=== PATIENT | female | born 1995 | race Caucasian/White ===

== ENCOUNTER 2016-08-02 19:16 | Emergency (ER) | payer MEDICAID ==
[2016-08-02 21:22] LABS: HCG URINE NEGATIVE (NEGATIVE)
[2016-08-02 21:28] LABS: UDS - AMPHET NEGATIVE QUAL (NEGATIVE); UDS - BARB NEGATIVE QUAL (NEGATIVE); UDS - BENZO POSITIVE QUAL (NEGATIVE); UDS - COCAINE NEGATIVE QUAL (NEGATIVE); UDS - METH NEGATIVE QUAL (NEGATIVE); UDS - OPIATE NEGATIVE QUAL (NEGATIVE); UDS - PCP NEGATIVE QUAL (NEGATIVE); UDS - THC NEGATIVE QUAL (NEGATIVE)
[2016-08-02 21:50] LABS: APPEARANCE CLOUDY (CLEAR); COLOR YELLOW (YELLOW); LEUKOCYTE ESTERASE 1+ (NEGATIVE)
[2016-08-02 21:51] LABS: BACTERIA MANY /hpf (NONE SEEN); BILIRUBIN NEGATIVE (NEGATIVE); EPITHELIAL CELLS NSEEN /hpf (0-5); GLUCOSE NEGATIVE (NEGATIVE); KETONE SMALL mg/dL (NEGATIVE); NITRITE POSITIVE (NEGATIVE); PROTEIN NEGATIVE (NEGATIVE); RED CELLS - URINE 0-5 /hpf (0-5); UROBILINOGEN NORMAL (NORMAL)
[2016-08-02 21:52] LABS: MUCUS <1+ /lpf (NONE SEEN)
== END 2016-08-02 22:50 | disposition home or self-care (01) ==
LOC: D.ER 19:16
PROVIDERS: Physician Assistant
DX: T14.8 Other injury of unspecified body region (principal); R30.0 Dysuria; Z72.51 High risk heterosexual behavior; N39.0 Urinary tract infection, site not specified; F17.200 Nicotine dependence, unspecified, uncomplicated; F41.9 Anxiety disorder, unspecified; F31.9 Bipolar disorder, unspecified

== ENCOUNTER 2017-06-26 19:03 | Emergency (ER) | payer MEDICAID ==
[2017-06-26 20:08] LABS: BASOPHILS 0.1 % (0-2); EOSINOPHILS 1.5 % (0-7); HEMATOCRIT 38.7 % (36.0-48.0); HEMOGLOBIN 13.4 g/dL (12-16); IMMATURE GRANULOCYTES 0.2 % (0-5); MCHC 34.6 g/dL (31.0-37.0); MCV 89.6 fL (80.0-100.0); MEAN PLATELET VOLUME 8.9 fL (7.4-10.4); MONOCYTES 6.8 % (2-11); NEUTROPHILS 62.4 % (40-80); PLATELET COUNT 288 10x3/uL (130-400); RBC 4.32 10x6/uL (4.00-5.40); RDW 11.7 % (11.5-14.5); WBC 8.6 10x3/uL (4.8-10.8)
[2017-06-26 20:25] LABS: APPEARANCE CLEAR (CLEAR); BILIRUBIN NEGATIVE (NEGATIVE); COLOR YELLOW (YELLOW); GLUCOSE NEGATIVE (NEGATIVE); KETONE NEGATIVE (NEGATIVE); NITRITE NEGATIVE (NEGATIVE); PROTEIN NEGATIVE (NEGATIVE); UROBILINOGEN NORMAL (NORMAL)
[2017-06-26 20:28] LABS: HCG SERUM POSITIVE (NEGATIVE)
[2017-06-26 20:33] LABS: ALBUMIN 3.7 g/dL (3.4-5.0); ALKALINE PHOSPHATASE 62 U/L (46-116); ALT (SGPT) 18 U/L (10-68); BILIRUBIN - TOTAL 0.18 mg/dL (0.2-1.3); CALC OSMOLALITY 270 mosm/kg (275-300); CALCIUM 8.9 mg/dL (8.5-10.1); CHLORIDE - SERUM 102 mmol/L (98-107); CREATININE - SERUM 0.6 mg/dL (0.6-1.3); GLUCOSE 106 mg/dL (74-106); POTASSIUM - SERUM 3.3 mmol/L (3.5-5.1); PROTEIN - SERUM 7.2 g/dL (6.4-8.2); SODIUM 136 mmol/L (136-145); UREA NITROGEN 11 mg/dL (7-18); eGFR NON AFRICAN AMERICAN > 90 mL/min (90-120)
[2017-06-26 21:29] LABS: HCG - QUANTITATIVE (MATERNAL) 92871 mIU/mL
== END 2017-06-26 21:24 | disposition home or self-care (01) ==
LOC: D.ER 19:03
PROVIDERS: Family Medicine
DX: O26.891 Other specified pregnancy related conditions, first trimester (principal); Z3A.01 Less than 8 weeks gestation of pregnancy

== ENCOUNTER → 2017-10-25 11:47 | Outpatient (CLI) | payer MEDICAID ==
[2017-10-25 12:58] LABS: UDS - AMPHET NEGATIVE QUAL (NEGATIVE); UDS - BARB NEGATIVE QUAL (NEGATIVE); UDS - BENZO NEGATIVE QUAL (NEGATIVE); UDS - COCAINE NEGATIVE QUAL (NEGATIVE); UDS - OPIATE NEGATIVE QUAL (NEGATIVE); UDS - PCP NEGATIVE QUAL (NEGATIVE); UDS - THC NEGATIVE QUAL (NEGATIVE)
[2017-10-25 13:14] LABS: APPEARANCE CLOUDY (CLEAR); BACTERIA MANY /hpf (NONE SEEN); BILIRUBIN NEGATIVE (NEGATIVE); COLOR YELLOW (YELLOW); EPITHELIAL CELLS 0-5 /hpf (0-5); GLUCOSE NEGATIVE (NEGATIVE); KETONE NEGATIVE (NEGATIVE); MUCUS <1+ /lpf (NONE SEEN); NITRITE POSITIVE (NEGATIVE); PROTEIN NEGATIVE (NEGATIVE); RED CELLS - URINE 0-5 /hpf (0-5); SPECIFIC GRAVITY 1.005 (1.005-1.020); UROBILINOGEN NORMAL (NORMAL)
== END | disposition home or self-care (01) ==
LOC: D.LDO 11:47
PROVIDERS: Obstetrics & Gynecology
DX: O26.892 Other specified pregnancy related conditions, second trimester (principal); Z3A.25 25 weeks gestation of pregnancy

== ENCOUNTER → 2017-12-03 15:55 | Outpatient (CLI) | payer MEDICAID | END | disposition home or self-care (01) | LOC: D.LDO 15:55 | DX: O36.8130 Decreased fetal movements, third trimester, not applicable or unspecified (principal); Z3A.31 31 weeks gestation of pregnancy ==

== ENCOUNTER → 2018-01-27 21:13 | Outpatient (CLI) | payer MEDICAID ==
[~2018-01-27 21:13] MED LIST: PRENATAL COMPLE1 TAB PO
[2018-02-05 05:55] VITALS: BMI 34.4
== END | disposition home or self-care (01) ==
LOC: D.LDO 21:13
DX: O26.893 Other specified pregnancy related conditions, third trimester (principal); Z3A.38 38 weeks gestation of pregnancy

== ENCOUNTER → 2018-01-31 15:20 | Outpatient (CLI) | payer MEDICAID ==
[2018-02-05 05:55] VITALS: BMI 34.4
== END | disposition home or self-care (01) ==
LOC: D.LDO 15:20
DX: O26.893 Other specified pregnancy related conditions, third trimester (principal); Z3A.39 39 weeks gestation of pregnancy

== ENCOUNTER → 2018-02-03 19:17 | Outpatient (CLI) | payer MEDICAID ==
[2018-02-05 05:55] VITALS: BMI 34.4
== END | disposition home or self-care (01) ==
LOC: D.LDO 19:17
DX: O48.0 Post-term pregnancy (principal); Z3A.40 40 weeks gestation of pregnancy

== ENCOUNTER 2018-02-05 05:11 | Inpatient (IN) | payer MEDICAID ==
[~2018-02-05] VITALS: Ht 161.3 cm; Wt 89.4 kg
[2018-02-05] VITALS (8 sets, daily range): BP systolic 121–136; BP diastolic 73–88; Ht 161.3 cm; Wt 89.4 kg
--- NOTE | ~2018-02-05 | OP ---
PATIENT NAME: MIRANDA MEDICAL RECORD: [id number] :95 LOCATION:[id number] ADMISSION DATE:02/05/18 SURGEON: LEOPOLDO QUILES MD DATE OF OPERATION: 02/05/2018 PREOPERATIVE DIAGNOSES: Arrest of dilatation and descent during induction of labor. POSTOPERATIVE DIAGNOSIS: Arrest of dilatation and descent during induction of labor. PROCEDURE: A primary low transverse section with vacuum assist. SURGEON: Leopoldo Quiles MD ANESTHESIA: Regional via epidural. INTRAVENOUS FLUIDS: Per anesthesia record. ESTIMATED BLOOD LOSS: 1000 cc. SPECIMENS: Placenta and cord for gases. FINDINGS: Viable infant with an unengaged vertex, Apgars 9 and 9. The placenta was delivered manually intact, 3-vessel cord noted, grossly normal appearing tubes and ovaries bilaterally. COMPLICATIONS: None apparent. SPECIMENS: Placenta and cord for gases. ESTIMATED BLOOD LOSS: 1000 cc. COMPLICATIONS: None apparent. PROCEDURE IN DETAIL: The patient was taken to the operating room where regional anesthesia was achieved without difficulty. The patient was then prepped and draped in normal sterile fashion in the dorsal supine position. SCDs were on and functioning normally. Walsh catheter had been placed and was draining freely. Following prep and drape and testing of the regional level, a Pfannenstiel skin incision was made, extended downward to the underlying subcutaneous fat to the level of the fascia. The fascia was then excised in the midline and extended bilaterally using the Rdz scissors. The superior and inferior aspects of the fascial incision were then grasped with Steph clamps times 2, tented upward, and sharply dissected from the underlying rectus muscle using the Bovie cautery and Rdz scissors. The rectus muscles were then bluntly in the midline and the peritoneum entered at the superior aspect of the incision sharply using the Metzenbaum scissors. The peritoneum was then dissected further laterally and downward using the Metzenbaum scissors under direct visualization of the bladder. A bladder blade was then placed into the pelvis and a bladder flap was created by excising the anterior leaf of the broad ligament across the lower uterine segment. A low transverse incision was made and extended using the Pelosi method. The head was found to be unengaged and extended. A Kiwi vacuum was placed on the occiput performing correction to the flexed position at which time the vertex was delivered OPERATIVE REPORT [id number] atraumatically. No traction was placed on the neck. No pop offs and immediately upon delivery of the vertex, vacuum was removed with no evidence of trauma. The body was delivered atraumatically. was bulb suctioned upon delivery. Cord was clamped times 2, cut, and the infant was handed to the awaiting nursery team. Cord was then obtained for gases. The placenta was then delivered manually intact, 3-vessel cord was noted. Uterus was exteriorized, cleared of all clots and debris and the uterine incision was repaired with 0 Vicryl in a running locked fashion times 2 with good hemostasis noted. Posterior cul-de-sac was then thoroughly irrigated and the uterus was replaced into the pelvis. Anterior cul-de-sac was then thoroughly irrigated and good hemostasis was noted from the uterine incision. Counts were then found to be correct times 2 for sponges, needles, and instruments. The fascia was repaired with 0 loop PDS times 1. The subcutaneous fat was approximated using 2-0 plain gut. The skin was repaired with lupe. The patient tolerated the procedure well, was transferred to postanesthesia recovery stable without incident. TRANSINT:[id number] Voice Confirmation ID: [id number] DOCUMENT ID: [id number] LEOPOLDO QUILES MD at 1754 CC: [id number] DICTATION DATE: 02/23/18 0754 MERCHANDISING PROFESSOR: 02/23/18 0850 DIS IN 02/07/18 [facility] [address] [place] [address]
--- NOTE | ~2018-02-05 | DS ---
PATIENT:RUTH :95 MEDICAL RECORD: [id number] DISCHARGE SUMMARY ADMISSION DATE: 02/05/18 DISCHARGE DATE: 02/07/18 HISTORY OF PRESENT ILLNESS: The patient is a 22-year-old at 40 weeks and 3 days, admitted for induction of labor. The patient noted to be O positive, group B strep positive, and rubella immune. PAST MEDICAL HISTORY: Significant for Trichomonas and positive for group B strep as noted. The patient also reported a history of anxiety. The patient reported a history of surgery with a pin on the little finger in 2002. MEDICATIONS: Included vitamins. FAMILY HISTORY: THE PATIENT REPORTED AN ALLERGY OR REACTION TO CODEINE. FAMILY HISTORY: The patient reported a family history significant for a parent with diabetes and sibling with hypertension. SOCIAL HISTORY: The patient reported being a former tobacco user and current user of marijuana. PHYSICAL EXAMINATION: VITAL SIGNS: On initial assessment, vital signs were found to be stable. The patient was afebrile and normotensive. LUNGS: Clear to auscultation. CARDIOVASCULAR: Regular rate and rhythm. PELVIC: Uterus was appropriately sized and nontender. EXTREMITIES: Lower extremities are free of Homans sign, erythema, or swelling. At admission, wellbeing was reassuring with a category 1 tracing in the 130 heart rate with moderate variability. Admit hemoglobin was found to be 12.3 with a platelet count of 203. ASSESSMENT AND PLAN: At that time; 1. Term intrauterine at 40 weeks and 2 days. 2. Admitted for induction of labor. 3. Positive group B strep. 4. History of Trichomonas. 5. High station. Plan to proceed with induction of labor. The patient was notified of the high station, which increases the risk of section. The patient voiced understanding and consent, and Pitocin and antibiotics were begun. The patient was started on Pitocin and antibiotics. The patient had a spontaneous rupture of membranes with clear fluid. After Pitocin for 9 hours, no cervical change or significant descent of the head was noted, the patient was given options of continuing with labor versus . The patient opted to proceed with . Risks and benefits were explained. The patient voiced understanding and consent. Operative report is as on the chart. The patient did well overnight on day #0, on Dilaudid DELINQUENT TAX COLLECTION ASSISTANT, IV Toradol, IV fluids, tolerating a clear liquid diet. SCDs were on and functioning normally. Walsh catheter had remained and urine output was found to be adequate. On the morning of postop day #1, the patient continued to do well. Vital signs are stable. The patient was afebrile. Hemoglobin was stable. Uterus is infraumbilical and DISCHARGE SUMMARY REPORT [id number] nontender. Incision was clean, dry and intact. The patient was advanced on postop day #1 to general diet, p.o. pain meds. Walsh catheter was discontinued and ambulation began. The patient continued to do well overnight on postop day #1. On postop day #2, the patient continued to improve. Vital signs were stable. Hemoglobin was stable. Uterus is infraumbilical. Incision was clean, dry and intact. The patient reported minimal lochia and minimal need for pain medication. The patient was discharged home on postop day #2 with instructions to follow up the next week for staple removal. TRANSINT:[id number] Voice Confirmation ID: [id number] DOCUMENT ID: [id number] ARELY VAUGHN MD at 1754 CC: [id number] DICTATION DATE: 02/23/18 0758 TERRITORY MANAGER [employer]AL SALES: 02/24/18 0552 DIS IN 02/07/18 [facility] [id number] [place] [address]
[2018-02-05] MEDS ORDERED: PRENATAL COMPLE1 TAB PO (05:52)
[2018-02-05 06:44] LABS: HEMATOCRIT 35.9 % (36.0-48.0); HEMOGLOBIN 12.3 g/dL (12-16); MCH 31.4 pg (26.0-34.0); MCHC 34.3 g/dL (31.0-37.0); MCV 91.6 fL (80.0-100.0); MEAN PLATELET VOLUME 9.3 fL (7.4-10.4); RBC 3.92 10x6/uL (4.00-5.40); WBC 12.3 10x3/uL (4.8-10.8)
[2018-02-05 07:41] LABS: APPEARANCE CLEAR (CLEAR); BACTERIA MODERATE /hpf (NONE SEEN); BILIRUBIN NEGATIVE (NEGATIVE); COLOR YELLOW (YELLOW); EPITHELIAL CELLS 0-5 /hpf (0-5); GLUCOSE NEGATIVE (NEGATIVE); KETONE NEGATIVE (NEGATIVE); MUCUS <1+ /lpf (NONE SEEN); NITRITE NEGATIVE (NEGATIVE); PROTEIN TRACE mg/dL (NEGATIVE); SPECIFIC GRAVITY 1.005 (1.005-1.020); UROBILINOGEN NORMAL (NORMAL); WHITE CELLS - URINE 0-5 /hpf (0-5)
[2018-02-06 00:15] VITALS: BP 128/70
[2018-02-06 04:50] VITALS: BP 125/75
[2018-02-06 06:27] LABS: BASOPHILS 0.1 % (0-2); EOSINOPHILS 0.1 % (0-7); HEMATOCRIT 37.1 % (36.0-48.0); HEMOGLOBIN 12.8 g/dL (12-16); IMMATURE GRANULOCYTES 0.9 % (0-5); LYMPHOCYTES 13.5 % (15-50); MCH 31.4 pg (26.0-34.0); MCHC 34.5 g/dL (31.0-37.0); MCV 91.2 fL (80.0-100.0); MEAN PLATELET VOLUME 9.3 fL (7.4-10.4); MONOCYTES 7.6 % (2-11); NEUTROPHILS 77.8 % (40-80); PLATELET COUNT 196 10x3/uL (130-400); RBC 4.07 10x6/uL (4.00-5.40); RDW 12.9 % (11.5-14.5); WBC 14.5 10x3/uL (4.8-10.8)
[2018-02-06 07:25] VITALS: BP 139/85
[2018-02-06 07:33] LABS: RAPID PLASMA REAGIN Non Reactive (Non Reactive)
[2018-02-06 19:58] VITALS: BP 134/87
[2018-02-07 00:23] VITALS: BP 117/74
[2018-02-07 07:23] VITALS: BP 128/74
== END 2018-02-07 13:24 | disposition home or self-care (01) | DRG 765 ==
LOC: D.LD 05:11
PROVIDERS: Obstetrics & Gynecology
PROC: 10D00Z1 Extraction of Products of Conception, Low, Open Approach (ICD-10-PCS; 2018-02-05)
PROC: 3E033VJ Introduction of Other Hormone into Peripheral Vein, Percutaneous Approach (ICD-10-PCS; principal; 2018-02-05 19:00)
DX: O62.1 Secondary uterine inertia (principal); O98.32 Other infections with a predominantly sexual mode of transmission complicating childbirth; O48.0 Post-term pregnancy; O99.214 Obesity complicating childbirth; A59.9 Trichomoniasis, unspecified; O99.824 Streptococcus B carrier state complicating childbirth; Z3A.40 40 weeks gestation of pregnancy; Z37.0 Single live birth